=== PATIENT | female | born 1955 | race Caucasian/White ===

== ENCOUNTER 2016-11-08 09:01 | Observation (INO) | payer OTHER ==
[2016-11-08 09:28] LABS: BASOPHIL 1.3 % (0-2.0); MCH 29.8 pg (25.7-33.7); MCHC 33.7 g/dl (32.0-36.0); MEAN CELL VOLUME 88.4 fl (80-96); MEAN PLT VOLUME 9.1 fl (7.5-11.1); NEUTROPHILS 62.1 % (42.8-82.8); PLATELET COUNT 203 K/MM3 (134-434); RDW 14.4 % (11.6-15.6); WHITE BLOOD COUNT 9.6 K/mm3 (4.0-10.0)
[2016-11-08 09:36] VITALS: BMI 27.4
[2016-11-08] MEDS ORDERED: LORAZEPAM CARPU-JECT 2 MG/ML DISP.SYRIN ONE ×2 (09:44→11:59)
[2016-11-08] MEDS ORDERED: HALOPERIDOL LACTATE 5 MG/ML IM ONE ×2 (09:44→12:29)
[2016-11-08] MEDS ORDERED: LORAZEPAM CARPU-JECT 2 MG/ML DISP.SYRIN IM ONE (09:44)
--- NOTE | 2016-11-08 09:50 | PDOC ---
History of Present Illness <Alondra Machadoyn - Last Filed: 11/08/16 11:29> - General History Source: Patient, EMS Exam Limitations: Clinical Condition - History of Present Illness Initial Comments: 11/08/16 09:48 61y F hx of paranoid schizophrenia, copd, sent by [email or web address] for evaluation of AMS. Per EMS, the pateint was seen more confused and not at her baseline since this morning with a mild L sided facial droop. EMS states the last time she was seen normal was last night. Per EMS, her vitals were HR 76, BP 114/78, BGM 74, saturation of 98% on RA. The patient denies any complaints, she is somenolent, but easily arousable to vertbal stimulus. she states she is just sleepy because she just woke up. Pt denies any other complaints currently but is combative and refusing any care. <Manuel Fam - Last Filed: 11/09/16 08:10> - General Chief Complaint: Altered Mental Status Stated Complaint: Altered Mental Status Time Seen by Provider: 11/08/16 09:14 NIH Stroke Scale - Last Known Well Date/Time & Onset Date Last Known Well: 11/07/16 (NIHSS Not accurate due to the patient being noncooperative with test) Time Last Known Well: 20:00 - Initial Evaluation Level of consciousness: Alert Ask patient the month and their age: Answers both correctly Ask patient to open & close eyes; make fist and let go: Obeys both correctly Best gaze (horizontal eye movement): Normal Visual field testing: No visual field loss Facial paresis (Show teeth/raise eyebrows/close eyes tight): Minor paralysis ( flattened nasolabial fold, asymmetry on smiling) Motor Function: Left Arm: Normal Motor Function: Right Arm: Normal (extends arm 90 (or 45) degrees for 10 seconds without drift Motor Function: Left Leg: Untestable (Joint fused or limb amputated), explain: (refusing to cooperate) Motor Function: Right Leg: Untestable )Joint fused orlimb amputated), explain: (refusing to cooperate with testing) Limb Ataxia: Untestable (Joint fused or limb amputated), explain: (refusing to cooperate with testing) Sensory(Use pinprick test arms,legs,trunk,face/side to side): Normal (patient refusing to cooperate with testing) Best language (Describe picture, name items, read sentences): No Aphasia Dysarthria (read several words): Normal articulation Extinction and Inattention: No abnormality (patient refusing to cooperate with testing) - Total Score NIH Stroke Scale Score: 1 <Manuel Fam - Last Filed: 11/09/16 08:10> tPA Exclusion checklist 3-4.5h - Time Elapsed Date last known well: 11/07/16 Time last known well: 22:00 Elaspsed time: 1 Day(s) and 10 Hour(s) and 8 Minutes - Thrombolytic Therapy Candidate Is patient eligible for thrombolytic therapy: No - Ineligibility reason(s) Reasons No tPA given: Outside of window - delayed arrival <Manuel Fam - Last Filed: 11/09/16 08:10> Past History <Lori Machado - Last Filed: 11/08/16 11:29> - Past Medical History COPD: Yes Psychiatric Problems: Yes (schizophreneia) - Psycho/Social/Smoking Cessation Hx Suicidal Ideation: No Smoking History: Current every day smoker Have you smoked in the past 12 months: Yes Number of Cigarettes Smoked Daily: 10 Information on smoking cessation initiated: No Drug/Substance Use Hx: No <Manuel Fam - Last Filed: 11/09/16 08:10> - Past Medical History Allergies/Adverse Reactions: Allergies Allergy/AdvReac Type Severity Reaction Status Date / Time Tetracyclines Allergy Severe Swelling Verified 11/08/16 09:36 Penicillins Allergy Intermediate Swelling Verified 11/08/16 09:36 Home Medications: Ambulatory Orders Alendronate Na [Fosamax] 70 mg PO Q7D 11/08/16 Baclofen 20 mg PO TID 11/08/16 Benztropine Mesylate 2 mg PO BID 11/08/16 Clonazepam 2 mg PO TID 11/08/16 Docusate Sodium [Colace -] 300 mg PO HS 11/08/16 Donepezil HCl 5 mg PO DAILY 11/08/16 Donepezil HCl [Aricept -] 10 mg PO HS 11/08/16 Fluphenazine HCl [Prolixin -] 5 mg PO BID 11/08/16 Oxybutynin Chloride [Oxybutynin Chloride ER] 5 mg PO DAILY 11/08/16 Oxycodone Sr [Oxycontin] 5 mg PO QID 11/08/16 Paroxetine HCl 40 mg PO DAILY 11/08/16 Quetiapine Fumarate [Quetiapine Fumarate ER] 200 mg PO HS 11/08/16 Quetiapine Fumarate [Seroquel -] 50 mg PO DAILY 11/08/16 Review of Systems - Review of Systems Able to Perform ROS?: No <Manuel Fam - Last Filed: 11/09/16 08:10> *Physical Exam - Vital Signs Last Vital Signs Temp Pulse Resp BP Pulse Ox 97.3 F L 56 L 14 152/115 100 11/08/16 09:32 11/08/16 10:00 11/08/16 10:00 11/08/16 10:00 11/08/16 10:00 <CandiceLori rodriguez - Last Filed: 11/08/16 11:29> - Vital Signs Last Vital Signs Temp Pulse Resp BP Pulse Ox 97.3 F L 61 10 L 127/83 97 11/08/16 09:32 11/08/16 09:32 11/08/16 09:32 11/08/16 09:32 11/08/16 09:32 - Physical Exam Comments: 11/08/16 10:02 GENERAL: The patient is awake, alert, and oriented x 2, somnolent but arousable to verbal stimulus HEAD: Normocephalic, atraumatic. EYES: extraocular movements intact, sclera anicteric, conjunctiva clear. ENT: Normal voice, Moist mucous membranes. NECK: Normal range of motion, supple LUNGS: Breath sounds equal, clear to auscultation bilaterally. No wheezes, no rhonchi, no rales. HEART: Regular rate and rhythm, normal S1 and S2 without murmur, rub or gallop. ABDOMEN: Soft, nontender, normoactive bowel sounds. No guarding, no rebound. . No CVA tenderness EXTREMITIES: Normal range of motion, no edema. No clubbing or cyanosis. No cords, erythema, or tenderness. NEUROLOGICAL: Mild left facial droop (flattening of L nasolabial fold), Normal speech, moving all 4 extremities spontaneoulsy and symmetrically, strength in upper extremities symmetric 5/5, will not cooperate for us to test her LE strength, finger to nose PSYCH: Normal mood, normal affect. SKIN: Warm, Dry, normal turgor, <Manuel Fam - Last Filed: 11/09/16 08:10> Heart Score/ECG Review - ECG Impressions Comment:: 11/08/16 11:35 Twelve-lead EKG was performed and reviewed by me. There is normal sinus rhythm with a rate of 54 The axis is normal. The intervals are normal. There is normal R wave progression There are no ST or T wave abnormalities. Impression: Sinus bradycardia <Manuel Fam - Last Filed: 11/09/16 08:10> ED Treatment Course - LABORATORY CBC & Chemistry Diagram: 11/08/16 09:20 11/08/16 09:20 - ADDITIONAL ORDERS Additional order review: Laboratory Results 11/08/16 11/08/16 11/08/16 09:38 09:38 09:38 INR Sodium Potassium Chloride Carbon Dioxide Anion Gap BUN Creatinine Creat Clearance w eGFR Random Glucose Calcium Total Bilirubin AST ALT Alkaline Phosphatase Creatine Kinase CK-MB (CK-2) Troponin I Total Protein Albumin Urine Color Ltyellow Urine Appearance Clear Urine pH 6.0 Ur Specific [place] 1.005 Urine Protein Negative Urine Glucose (UA) Negative Urine Ketones Negative Urine Blood 2+ H Urine Nitrite Positive Urine Bilirubin Negative Urine Urobilinogen Negative Ur Leukocyte Esterase Trace H Urine RBC 1 Urine WBC 4 Ur Epithelial Cells Rare Urine Bacteria Rare Opiates Screen Negative Methadone Screen Negative Barbiturate Screen Negative Phencyclidine Screen Negative Ur Amphetamines Screen Negative MDMA (Ecstasy) Screen Negative Benzodiazepines Screen Negative Cocaine Screen Negative U Marijuana (THC) Screen Negative Blood Type O POSITIVE Antibody Screen Negative 11/08/16 11/08/16 09:20 09:20 INR 1.06 Sodium 146 H Potassium 4.0 Chloride 111 H Carbon Dioxide 29 Anion Gap 6 L BUN 12 Creatinine 0.8 Creat Clearance w eGFR > 60 Random Glucose 80 Calcium 8.9 Total Bilirubin 0.5 AST 16 ALT 19 Alkaline Phosphatase 108 Creatine Kinase 198 H CK-MB (CK-2) 4.029 H Troponin I < 0.02 Total Protein 6.7 Albumin 3.8 Urine Color Urine Appearance Urine pH Ur Specific [place] Urine Protein Urine Glucose (UA) Urine Ketones Urine Blood Urine Nitrite Urine Bilirubin Urine Urobilinogen Ur Leukocyte Esterase Urine RBC Urine WBC Ur Epithelial Cells Urine Bacteria Opiates Screen Methadone Screen Barbiturate Screen Phencyclidine Screen Ur Amphetamines Screen MDMA (Ecstasy) Screen Benzodiazepines Screen Cocaine Screen U Marijuana (THC) Screen Blood Type Antibody Screen 11/08/16 09:20 RBC 4.22 MCV 88.4 MCHC 33.7 RDW 14.4 MPV 9.1 Neutrophils % 62.1 Lymphocytes % 21.1 Monocytes % 11.5 H Eosinophils % 4.0 Basophils % 1.3 - RADIOLOGY Radiograph Interpretation: 11/08/16 11:29 Chest X-Ray Shallow inspiration. Uncoiled thoracic aorta. Heart is borderline enlarged. No evidence of pulmonary infiltrates, pneumothorax , or large pleural effusion. Intact visualized osseous structures. Accentuated pulmonary vasculature attributed to combination of the portable exam and shallow inspiration. Impression No evidence of pneumonia, CHF, pleural effusion, or pneumothorax. Reported By: Parag Lantigua MD 11/08/[address] Head Impression. No evidence of acute intracranial hemorrhage, edema, midline shift, mass effect , or skull fracture. No CT evidence of acute territorial infarction. Reported By: Parag Lantigua MD 11/08/16 1042 - Medications Given in the ED: ED Medications Discontinued Medications Generic Name Dose Route Start Last Admin Trade Name Freq PRN Reason Stop Dose Admin Haloperidol 5 mg 11/08/16 09:44 11/08/16 10:39 Haldol Injection (Fast Acting) - IM 11/08/16 09:45 Not Given ONCE ONE Lorazepam 2 mg 11/08/16 09:44 11/08/16 09:45 Ativan Injection - IM 11/08/16 09:45 2 mg ONCE ONE Administration <Lori Machado - Last Filed: 11/08/16 11:29> - LABORATORY CBC & Chemistry Diagram: 11/08/16 09:20 11/08/16 09:20 - ADDITIONAL ORDERS Additional order review: 11/08/16 09:20 RBC 4.22 MCV 88.4 MCHC 33.7 RDW 14.4 MPV 9.1 Neutrophils % 62.1 Lymphocytes % 21.1 Monocytes % 11.5 H Eosinophils % 4.0 Basophils % 1.3 <Manuel Fam - Last Filed: 11/09/16 08:10> Medical Decision Making - Medical Decision Making 11/08/16 09:53 pt refusing any care. due to her psych history, and her inability to reply back to me my concerns for her having a possible CVA due to her flattened nasolabial fold, i do not think she has the capacity to make a decision to refuse care. will need to sedate the patient due to her interfering with patient care. will give pt 2mg ativan will obtain blood work and UA 11/08/16 10:25 11/08/16 10:53 Patient is a 61-year-old female history of schizophrenia paranoid type, COPD sent in by a [facility] guardian for evaluation of possible cVA - patient noted different from her baseline per staff, EMS was called noted the patient had a mild left sedate sided facial droop as well as an uneven gait (may be baseline) . The patient is noncooperative upon arrival, requiring sedation and restraitns. CT was obtained to rule out a CVA, blood work was obtained to rule out metabolic derangements, anemia consider possible bells palsy? unable to determine if there is weakness or not in the V1 distribution UA chest x-ray also obtained to rule out occult infection The patient's CT of the head reveals no acute disease 11/08/16 11:11 pts UA cw UTI will give dose of levaquin will admit for neuro eval of facial droop and possible cva and uti NIHSS completed but not accurate due to the pts not willing to cooperatew ith testing. 11/08/16 11:[address] novoa agreed with observation and neuro consultation Case discussed in detail with admitting physician including history, physical exam and ancillary studies. Admitting physician has assumed care for the patient, will follow all pending diagnostics and will complete the evaluation and treatment. 11/08/16 12:31 pt again screaming, fighting against staff required 4 pt restraints and mary kay give haldol pts QT at 451 on EKG here CRITICAL CARE DOCUMENTATION: I spent ~95 minutes of Critical Care time, excluding separately billable procedures, involving high complexity decision making to assess, manipulate and support vital system function(s) to treat single or multiple vital organ system failure and/or to prevent further life threatening deterioration of the patient' s condition. <Manuel Fam - Last Filed: 11/09/16 08:10> *DC/Admit/Observation/Transfer <Lori Machado - Last Filed: 11/08/16 11:29> - Discharge Dispostion Admit: Yes <Manuel Fam - Last Filed: 11/09/16 08:10> Diagnosis at time of Disposition: Facial droop UTI (urinary tract infection) Qualifiers: Urinary tract infection type: site unspecified Hematuria presence: without hematuria Qualified Code(s): N39.0 - Urinary tract infection, site not specified - Discharge Dispostion Condition at time of disposition: Guarded - Referrals
[2016-11-08 09:58] LABS: ALBUMIN 3.8 g/dl (3.4-5.0); ALK PHOS 108 U/L (45-117); ANION GAP 6 (8-16); CALCIUM 8.9 mg/dL (8.5-10.1); CO2 29 mmol/L (21-32); CREATININE 0.8 mg/dL (0.55-1.02); GLUCOSE,RANDOM 80 mg/dL (74-106); SGOT/AST 16 U/L (15-37); SGPT/ALT 19 U/L (12-78); TOT PROT 6.7 g/dl (6.4-8.2)
[2016-11-08 10:02] LABS: INR 1.06 (0.82-1.09); PROTHROMBIN TIME (PATIENT) 11.7 SEC (9.98-11.88)
[2016-11-08 10:13] LABS: BILIRUBIN,TOTAL 0.5 mg/dL (0.2-1.0); TROPONIN I < 0.02 ng/ml (0.00-0.05)
[2016-11-08 10:55] LABS: URINE APPEARANCE CLEAR; URINE BILIRUBIN NEGATIVE (NEGATIVE); URINE COLOR LTYELLOW; URINE GLUCOSE (UA) NEGATIVE (NEGATIVE); URINE KETONE NEGATIVE (NEGATIVE); URINE NITRITE POSITIVE (NEGATIVE); URINE PROTEIN NEGATIVE (NEGATIVE); URINE UROBILINOGEN NEGATIVE E.U./dl (0.2-1.0)
[2016-11-08 10:58] LABS: URINE BLOOD 2+ (NEGATIVE); URINE LEUK ESTERASE TRACE (NEGATIVE)
[2016-11-08 10:59] LABS: URINE BACTERIA RARE /hpf (NONE SEEN); URINE RBC 1 /hpf (0-3); URINE WBC 4 /hpf (3-5)
[2016-11-08 11:01] LABS: URINE MARIJUANA THC NEGATIVE ng/ml (CUTOFF=50)
[2016-11-08] MEDS ORDERED: LEVOFLOXACIN 750 MG IVPB 150 ML IVPB ONE (11:09)
[2016-11-08] MEDS ORDERED: ASPIRIN 81 MG CHEWABLE TABLETS PO ONE (11:14)
[2016-11-08] MEDS ORDERED: ASPIRIN 81 MG CHEWABLE TABLETS ONE (11:23)
[2016-11-08] MEDS ORDERED: LEVOFLOXACIN 500 MG IVPB 100 ML IVPB ONE (11:24)
[2016-11-08] MEDS ORDERED: LEVOFLOXACIN 250 MG IVPB 50 ML IVPB ONE (11:24)
[2016-11-08] MEDS ORDERED: ACETAMINOPHEN 325 MG TABLET (FP) PO PRN (11:54)
[2016-11-08] MEDS ORDERED: ONDANSETRON 4 MG/2 ML VIAL IVPB PRN (11:54)
--- NOTE | 2016-11-08 11:54 | HP ---
[id number] from [email or web address] who was sent in to the ER because she was confused and appeared to have a left facial droop. As per EMS, she last appeared normal last night. On arrival to the ER, she was noted to be somnolent but arousable and combative. She is currently sedated and minimally arousable to pain. She is unable to provide any history. PAST MEDICAL HISTORY Paranoid schizophrenia COPD PAST SURGICAL HISTORY Unobtainable Allergies Tetracyclines Allergy (Severe, Verified 11/08/16 09:36) Swelling Penicillins Allergy (Intermediate, Verified 11/08/16 09:36) Swelling HOME MEDICATIONS 3 Medication Instructions Recorded Alendronate Na [Fosamax] 70 mg PO Q7D 11/08/16 Baclofen 20 mg PO TID 11/08/16 Benztropine Mesylate 2 mg PO BID 11/08/16 Clonazepam 2 mg PO TID 11/08/16 Docusate Sodium [Colace -] 300 mg PO HS 11/08/16 Donepezil HCl 5 mg PO DAILY 11/08/16 Donepezil HCl [Aricept -] 10 mg PO HS 11/08/16 Fluphenazine HCl [Prolixin -] 5 mg PO BID 11/08/16 Oxybutynin Chloride [Oxybutynin 5 mg PO DAILY 11/08/16 Chloride ER] Oxycodone Sr [Oxycontin] 5 mg PO QID 11/08/16 Paroxetine HCl 40 mg PO DAILY 11/08/16 Quetiapine Fumarate [Quetiapine 200 mg PO HS 11/08/16 Fumarate ER] Quetiapine Fumarate [Seroquel -] 50 mg PO DAILY 11/08/16 Social History: Smoking: Unknown Alcohol: Unknown Drugs: Unknown Recent Travel: No Family History: Unobtainable REVIEW OF SYSTEMS Unobtainable PHYSICAL EXAMINATION Vital Signs Period Temp Pulse Resp BP Sys/[place] Pulse Ox Last 24 Hr 97.3 F 56-61 10-14 127-152/83-115 97-100 GENERAL: Sleeping. Minimally arousable with pain. HEAD: Normal with no signs of trauma. EYES: Pupils equal, round and reactive to light, sclerae anicteric, conjunctivae clear. EARS, NOSE, THROAT: Ears normal, nares patent. Moist mucous membranes. NECK: Normal range of motion, supple without lymphadenopathy, JVD, or masses. LUNGS: Breath sounds equal, clear to auscultation bilaterally. No wheezes, and no crackles. No accessory muscle use. HEART: Regular rate and rhythm, normal S1 and S2 without murmur, rub or gallop. ABDOMEN: Soft, not distended, normoactive bowel sounds, no guarding, no rebound , no masses. No hepatomegaly or splenomegaly. MUSCULOSKELETAL: Normal passive range of motion at all joints. No bony deformities. UPPER EXTREMITIES: 2+ pulses, warm, well-perfused. No cyanosis. No clubbing. Cap refill <2 seconds. No peripheral edema. LOWER EXTREMITIES: 2+ pulses, warm, well-perfused. No calf tenderness. No peripheral edema. NEUROLOGICAL: Unable to assess. PSYCHIATRIC: Unable to assess. SKIN: Warm, dry, normal turgor, no rashes or lesions noted. Laboratory Tests 11/08/16 11/08/16 11/08/16 09:20 09:20 09:20 WBC 9.6 RBC 4.22 Hgb 12.6 Hct 37.3 MCV 88.4 MCHC 33.7 RDW 14.4 Plt Count 203 MPV 9.1 Neutrophils % 62.1 Lymphocytes % 21.1 Monocytes % 11.5 H Eosinophils % 4.0 Basophils % 1.3 INR 1.06 Sodium 146 H Potassium 4.0 Chloride 111 H Carbon Dioxide 29 Anion Gap 6 L BUN 12 Creatinine 0.8 Creat Clearance w eGFR > 60 Random Glucose 80 Calcium 8.9 Total Bilirubin 0.5 AST 16 ALT 19 Alkaline Phosphatase 108 Creatine Kinase 198 H CK-MB (CK-2) 4.029 H Troponin I < 0.02 Total Protein 6.7 Albumin 3.8 Urine Color Urine Appearance Urine pH Ur Specific [place] Urine Protein Urine Glucose (UA) Urine Ketones Urine Blood Urine Nitrite Urine Bilirubin Urine Urobilinogen Ur Leukocyte Esterase Urine RBC Urine WBC Ur Epithelial Cells Urine Bacteria Opiates Screen Methadone Screen Barbiturate Screen Phencyclidine Screen Ur Amphetamines Screen MDMA (Ecstasy) Screen Benzodiazepines Screen Cocaine Screen U Marijuana (THC) Screen Blood Type Antibody Screen 11/08/16 11/08/16 11/08/16 09:38 09:38 09:38 WBC RBC Hgb Hct MCV MCHC RDW Plt Count MPV Neutrophils % Lymphocytes % Monocytes % Eosinophils % Basophils % INR Sodium Potassium Chloride Carbon Dioxide Anion Gap BUN Creatinine Creat Clearance w eGFR Random Glucose Calcium Total Bilirubin AST ALT Alkaline Phosphatase Creatine Kinase CK-MB (CK-2) Troponin I Total Protein Albumin Urine Color Ltyellow Urine Appearance Clear Urine pH 6.0 Ur Specific [place] 1.005 Urine Protein Negative Urine Glucose (UA) Negative Urine Ketones Negative Urine Blood 2+ H Urine Nitrite Positive Urine Bilirubin Negative Urine Urobilinogen Negative Ur Leukocyte Esterase Trace H Urine RBC 1 Urine WBC 4 Ur Epithelial Cells Rare Urine Bacteria Rare Opiates Screen Negative Methadone Screen Negative Barbiturate Screen Negative Phencyclidine Screen Negative Ur Amphetamines Screen Negative MDMA (Ecstasy) Screen Negative Benzodiazepines Screen Negative Cocaine Screen Negative U Marijuana (THC) Screen Negative Blood Type O POSITIVE Antibody Screen Negative Chest x-ray: No acute process. Head CT: No hemorrhage, mass, infarct. EKG: Sinus bradycardia, rate 54. ASSESSMENT/PLAN: This is a 61-year-old woman with a history of paranoid schizophrenia and COPD who was sent in from [facility] with confusion and left facial droop. She was found to have sodium 146. Urinalysis shows 2+ blood, (+) nitrite, trace leukocyte esterase, 4 WBC, rare bacteria. She is being placed in observation for further evaluation of an emergent condition. 1. Encephalopathy with left facial droop possibly secondary to acute CVA - No evidence of acute infarct on head CT - Observe on telemetry - Neurology consult - Start aspirin, Lipitor - Carotid dopplers - Echocardiogram - Lipid profile - MRI of brain if cooperative - Hold opiates 2. Hypernatremia secondary to dehydration - IV fluid - Monitor electrolytes 3. Possible UTI - Continue Levaquin 4. COPD - Stable - DuoNeb as needed 5. Paranoid schizophrenia - Continue Seroquel, Prolixin, Cogentin, Paxil, Klonopin Problem List - Problem (1) Dehydration Code(s): E86.0 - DEHYDRATION (2) Hypernatremia Code(s): E87.0 - HYPEROSMOLALITY AND HYPERNATREMIA (3) COPD (chronic obstructive pulmonary disease) Code(s): J44.9 - CHRONIC OBSTRUCTIVE PULMONARY DISEASE, UNSPECIFIED (4) Paranoid schizophrenia Code(s): F20.0 - PARANOID SCHIZOPHRENIA Visit type - Emergency Visit Emergency Visit: Yes ED Registration Date: 11/08/16 Care time: The patient presented to the Emergency Department on the above date and was hospitalized for further evaluation of their emergent condition. - New Patient This patient is new to me today: Yes Date on this admission: 11/08/16 - Critical Care Critical Care patient: No
[2016-11-08] MEDS ORDERED: ASPIRIN 300 MG SUPP.RECT RC ONE (12:00)
[2016-11-08] MEDS ORDERED: LORAZEPAM CARPU-JECT 2 MG/ML DISP.SYRIN IVPUSH ONE (12:08)
[2016-11-08] MEDS ORDERED: HALOPERIDOL LACTATE 5 MG/ML ONE (12:37)
[2016-11-08] MEDS ORDERED: ASPIRIN 300 MG SUPP.RECT PR ONE (12:46)
--- NOTE | 2016-11-08 13:18 | CONSULT ---
Admitting History and Physical - Primary Care Physician PCP: James Mack - Admission History of Present Illness: Per EMR: "Initial Comments: 11/08/16 09:48 61y F hx of paranoid schizophrenia, copd, sent by [facility] for evaluation of AMS. Per EMS, the pateint was seen more confused and not at her baseline since this morning with a mild L sided facial droop. EMS states the last time she was seen normal was last night. Per EMS, her vitals were HR 76, BP 114/78, BGM 74, saturation of 98% on RA. The patient denies any complaints, she is somenolent, but easily arousable to vertbal stimulus. she states she is just sleepy because she just woke up. Pt denies any other complaints currently but is combative and refusing any care. " Poor cooperation with staff reported. History Source: Patient, Medical Record Limitations to Obtaining History: Clinical Condition - Smoking History Smoking history: Current every day smoker Have you smoked in the past 12 months: Yes Aproximately how many cigarettes per day: 10 History - Admission Reason For Visit: UTI,FACIAL WEAKNESS - Diagnostics X-ray: Report Reviewed CT Scan: Report Reviewed - General Mental Status: Awake and Alert, Able to Follow Commands, Forgetful, Combative ( per report. Cooperated with me.), Vague (Speaking to "Ismael") Attention: Distractible Ability to Follow Directions: Fair Head/Neck Control: Good - Hearing Hearing: Functional Speech Evaluation - Communication Primary Language: SURINAMESE Communication: Yes: Simple Responses - Speech Production Able to Make Needs Known: Yes: Mildly Impaired Intelligibility: Yes: Mildly Impaired - Speech Characteristics Voice Loudness: Normal Voice Pitch: Yes: Normal Voice Phonatory-based Quality: Yes: Normal Speech Clarity: < 75% Nasal Resonance: Normal Articulation: Yes: Imprecise Rate of Speech: Too Slow - Language/Auditory Comprehension Follows: Yes: 1 Stage Simple Commands - Language/Verbal Expression Able to Communicate Wants and Needs: Yes: Mildly Impaired - Swallow Evaluation/Bedside Assessment Current Nutritional Intake: NPO Oral Secretions: Yes: WFL Dentition: Yes: Edentulous (Pt says she has dentures but they are not at the hospital.) Facial Symmetry at Rest: Symmetrical (slight left?) Facial Symmetry on Retraction: Symmetrical Facial Movement: Controlled Sensation: Normal Jaw Position: Open at Rest Against Resistance Opening: Normal Against Resistance Closing: Normal Pucker Lips: Normal Smile: Normal Lingual Movement: Normal, Symmetric Lingual Speed of Movement: Reduced Lingual Movement Characteristics: Normal Velopharyngeal Movement: Normal Laryngeal Elevation: WFL Laryngeal Movement: Able to Palpate Rate of Intake: Impulsive Bolus Size: Large Labial Seal: WFL Chewing: Impaired (limited mastication of cracker. Seemed to stick in in throat , cleared with f/u of water.) Oral Prep Time: WFL A-P Transit: WFL Pocketing: Present Left Coughing/Throat Clear: No Change in Voice: No Recommendations - Speech Evaluation, Impression/Plan Impression: Mildly reduced articulatory rate.Edentulous with limited mastication /pharyngeal clearance suspected with hard solids. - Dysphagia Impressions/Plan Dysphagia Impressions: Mild Impairment *Silent aspiration: cannot be R/O at bedside Dysphagia Treatment Plan: Other (supervision with meals) - Recommendations Diet Consistency: Other (soft, easy to chew foods.) Medication Administration: Whole with water Liquids: Thin Liquids
[2016-11-08] MEDS ORDERED: ALBUTEROL SO4 2.5/IPRATROPIUM 0.5 INH SOL 3 ML VIAL.NEB. NEB PRN (13:27)
[2016-11-08] MEDS ORDERED: PATIENT'S OWN MEDICATION (NON-FORMULARY) (Baclofen [Baclofen] 20 MG) PO SCH (14:00)
[2016-11-08] MEDS ORDERED: CLONAZEPAM 2 MG PO SCH (14:00)
[2016-11-08] MEDS: clonazePAM 2 MG TABLET PO SCH ×2 (16:28→23:06)
[2016-11-08] MEDS: SODIUM CHLORIDE 1,000 ML IV SCH (16:29)
[2016-11-08] MEDS: BACLOFEN 10 MG TABLET (FP) PO SCH ×2 (16:29→22:58)
--- NOTE | 2016-11-08 19:45 | CON.NEURO ---
Consult Consult Specialty:: NEUROLOGY Reason for Consultation:: left facial droop, lethargy - History of Present Illness History of Present Illness: 61-year-old woman with a history of paranoid schizophrenia, COPD who was sent in from [facility] with confusion, agitation and left facial droop. In ED she was found to have sodium 146 and UTI. - Alcohol/Substance Use Hx Alcohol Use: No - Smoking History Smoking history: Current every day smoker Have you smoked in the past 12 months: Yes Aproximately how many cigarettes per day: 10 Home Medications - Allergies Allergies/Adverse Reactions: Allergies Allergy/AdvReac Type Severity Reaction Status Date / Time Tetracyclines Allergy Severe Swelling Verified 11/08/16 09:36 Penicillins Allergy Intermediate Swelling Verified 11/08/16 09:36 - Home Medications Home Medications: Ambulatory Orders Alendronate Na [Fosamax] 70 mg PO Q7D 11/08/16 Baclofen 20 mg PO TID 11/08/16 Benztropine Mesylate 2 mg PO BID 11/08/16 Clonazepam 2 mg PO TID 11/08/16 Docusate Sodium [Colace -] 300 mg PO HS 11/08/16 Donepezil HCl 5 mg PO DAILY 11/08/16 Donepezil HCl [Aricept -] 10 mg PO HS 11/08/16 Fluphenazine HCl [Prolixin -] 5 mg PO BID 11/08/16 Oxybutynin Chloride [Oxybutynin Chloride ER] 5 mg PO DAILY 11/08/16 Oxycodone Sr [Oxycontin] 5 mg PO QID 11/08/16 Paroxetine HCl 40 mg PO DAILY 11/08/16 Quetiapine Fumarate [Quetiapine Fumarate ER] 200 mg PO HS 11/08/16 Quetiapine Fumarate [Seroquel -] 50 mg PO DAILY 11/08/16 Review of Systems - Review of Systems Constitutional: reports: No Symptoms Eyes: reports: No Symptoms HENT: reports: No Symptoms Neck: reports: No Symptoms Cardiovascular: reports: No Symptoms Respiratory: reports: No Symptoms Neurological: reports: Pre-Existing Deficit, Tremors Endocrine: reports: No Symptoms Hematology/Lymphatic: reports: No Symptoms Psychiatric: reports: Depression, Paranoia Physical Exam-Neuro Vital Signs: Vital Signs Temperature 97.9 F 11/08/16 13:22 Pulse Rate 65 11/08/16 15:54 Respiratory Rate 14 11/08/16 13:42 Blood Pressure 126/78 11/08/16 13:22 O2 Sat by Pulse Oximetry (%) 100 11/08/16 13:42 Constitutional: Yes: Cachectic, Mild Distress, Poor Hygeine Neck: Yes: Supple, Trachea Midline Cardiovascular: Yes: Regular Rate and Rhythm, S1, S2 Respiratory: Yes: Regular, CTA Bilaterally Gastrointestinal: Yes: Normal Bowel Sounds, Soft Labs: INR, PTT INR 1.06 (0.82-1.09) 11/08/16 09:20 - Neuro Exam Level Of Consciousness: Yes: Oriented to Person, Oriented to Place, Oriented to Time Eyes: Yes: PERRLA Speech: Slurred Cranial Nerves II-XII Intact: No (mild LCFP, poor dentition) Gag: Present DTR's: 1+ Left Bicep, 1+ Right Bicep, 1+ Left Tricep, 1+ Right Tricep, 1+ Left Brachioradialis, 1+ Right Brachioradialis, 1+ Left Achilles, 1+ Right Achilles Babinski: Absent Response to light touch: Normal Response to pain prick: Normal Response to temperature: Normal Response to vibration: Normal Movement Disorders: Asterixis, Tremors Coordination: Normal: Finger to Nose (ataxia mild FTN) Motor Strength: 5/5: Left Arm, Right Arm, Left Leg, Right Leg Gait: Deferred Imaging - Results Cat Scan: Report Reviewed, Image Reviewed Problem List - Problems (1) Paranoid schizophrenia Code(s): F20.0 - PARANOID SCHIZOPHRENIA (2) Facial droop Code(s): R29.810 - FACIAL WEAKNESS (3) Hypernatremia Code(s): E87.0 - HYPEROSMOLALITY AND HYPERNATREMIA (4) Metabolic encephalopathy Code(s): G93.41 - METABOLIC ENCEPHALOPATHY Assessment/Plan 61-year-old woman with a history of paranoid schizophrenia, COPD who was sent in from [facility] with confusion, agitation and left facial droop. In ED she was found to have sodium 146 and UTI. At the neurological exam there is very mild left nasolabial fold asymmetry. Impression: lethargy and AMS due to metabolic encephalopathy, UTI, hypernatremia. TIA Plan: - stroke work up -Carotid dopplers, Echocardiogram, Lipid profile, MRI of brain - start ASA , statin, - treat UTI per medical team - correct electrolytes- banana bag. iv. x1 - Hold opiates, check depakote level - blood cultures - she burned her fingers recently and the left digit 3 seems infected - wound consult to consider Thank you for this consult.
[2016-11-08] MEDS ORDERED: PT OWN MED DRAWER 7, Y5N ONE (21:51)
[2016-11-08] MEDS: DOCUSATE SODIUM 100 MG CAPSULE (FP) PO SCH (22:54)
[2016-11-08] MEDS: BENZTROPINE MESYLATE 2 MG TABLET PO SCH (22:56)
[2016-11-08] MEDS: DONEPEZIL HCL 10 MG TABLET (FP) PO SCH (22:56)
[2016-11-08] MEDS: clonazePAM 0.5 MG TABLET PO SCH (22:57)
[2016-11-08] MEDS: ATORVASTATIN CA 40 MG TABLET (FP) PO SCH (22:58)
--- NOTE | 2016-11-08 23:15 | EKG ---
Test Reason : Blood Pressure : / mmHG Vent. Rate : 054 BPM Atrial Rate : 054 BPM P-R Int : 178 ms QRS Dur : 084 ms QT Int : 476 ms P-R-T Axes : 050 052 049 degrees QTc Int : 451 ms SINUS BRADYCARDIA OTHERWISE NORMAL ECG NO PREVIOUS ECGS AVAILABLE Confirmed by ROMEO LAM MD ([id number]) on 11/08/2016 11:15:10 PM Referred By: Confirmed By:ROMEO LAM MD
[2016-11-09] MEDS: LORAZEPAM CARPU-JECT 2 MG/ML DISP.SYRIN IM PRN ×2 (03:28→12:30)
[2016-11-09] MEDS: BACLOFEN 10 MG TABLET (FP) PO SCH ×3 (06:19→21:04)
[2016-11-09] MEDS: clonazePAM 0.5 MG TABLET PO SCH ×3 (06:19→21:03)
[2016-11-09 08:01] LABS: CALCIUM 8.3 mg/dL (8.5-10.1); CREATININE 0.8 mg/dL (0.55-1.02)
[2016-11-09] MEDS ORDERED: PT OWN MED DRAWER 7, Y5N ONE ×2 (09:08→20:58)
[2016-11-09] MEDS ORDERED: PATIENT'S OWN MEDICATION (NON-FORMULARY) (Oxybutynin Chloride [Oxybutynin Chloride Er] 5 M PO SCH (10:00)
[2016-11-09] MEDS ORDERED: PATIENT'S OWN MEDICATION (NON-FORMULARY) (Paroxetine Hcl [Paroxetine Hcl] 40 MG) PO SCH (10:00)
[2016-11-09] MEDS: SODIUM CHLORIDE 1,000 ML IV SCH (10:04)
[2016-11-09] MEDS: LEVOFLOXACIN 500 MG IVPB 100 ML IVPB SCH (10:04)
[2016-11-09] MEDS: DONEPEZIL HCL 5 MG TABLET (FP) PO SCH (10:06)
[2016-11-09] MEDS: ASPIRIN COATED 81 MG TABLET.EC PO SCH (10:08)
[2016-11-09] MEDS: BENZTROPINE MESYLATE 2 MG TABLET PO SCH ×2 (10:08→21:03)
[2016-11-09] MEDS: QUEtiapine FUMARATE 50 MG TABLET PO SCH (10:08)
[2016-11-09] MEDS: PARoxetine HCL 20 MG TABLET (FP) PO SCH (10:08)
[2016-11-09] MEDS: SOLIFENACIN SUCCINATE 5 MG TAB (FP) PO SCH (10:09)
[2016-11-09] MEDS ORDERED: POTASSIUM CHLORIDE 40 MEQ/30 ML UNIT DOSE CUP PO ONE (10:15)
--- NOTE | 2016-11-09 10:46 | PN ---
Progress Note, SENIOR BIOINFORMATICS SCIENTIST - Note Progress Note: Selected Entries 11/08/16 11/08/16 11/08/16 09:32 13:22 17:00 Supper Temperature 97.3 F L 97.9 F 98.0 F 11/08/16 11/08/16 11/09/16 21:20 22:00 10:00 Supper 50% Temperature 98.6 F 97.8 F Laboratory Tests 11/08/16 09:20 WBC 9.6 Pt seen with breakfast tray in front of her. Most remained. Pt reports that she is ALLERGIC TO EGGS AND HALDOL. Not noted in EMR or transfer summary. Reported to primary nurse and nurse mgr. Sleepy but arousable. Cooperative with me today. Speech more intelligible. Articulatory rate improving.
--- NOTE | 2016-11-09 17:23 | PN ---
Physical Exam: SUBJECTIVE: Patient seen and examined. She is want her phone. She is alert today , she says she is allergic to PCN. OBJECTIVE: Vital Signs Period Temp Pulse Resp BP Sys/Bahena Pulse Ox Last 24 Hr 97.8 F-98.7 F 76-79 18-22 130-157/90-105 100 PE Neuro: alert, awake, cn 2-12intact, oriented to self, place, year president, facial symmetry Pulm: Clear anteriorly CV: s1 s2 rrr no mrg Abd: s nt nd +bs Ext: L hand third digit burn, non draining, + tenderness, mild swelling, moving all extremities Laboratory Results - last 24 hr 11/09/16 05:35 Sodium 145 Potassium 3.4 L Chloride 109 H Carbon Dioxide 27 Anion Gap 9 BUN 11 Creatinine 0.8 Random Glucose 82 Calcium 8.3 L Triglycerides 90 Cholesterol 163 Total LDL Cholesterol 103 H HDL Cholesterol 52 Active Medications Generic Name Dose Route Start Last Admin Trade Name Freq PRN Reason Stop Dose Admin Acetaminophen 650 mg 11/08/16 11:54 Tylenol - PO Q4H PRN FEVER OR PAIN Albuterol/Ipratropium 1 amp 11/08/16 13:27 11/09/16 09:10 Duoneb - NEB 1 amp Q4H PRN Administration SHORTNESS OF BREATH Aspirin 81 mg 11/09/16 10:00 11/09/16 10:08 Ecotrin - PO 81 mg DAILY SHEA Administration Atorvastatin Calcium 40 mg 11/08/16 22:00 11/08/16 22:58 Lipitor - PO 40 mg HS SHEA Administration Baclofen 20 mg 11/08/16 14:00 11/09/16 14:26 Lioresal - PO 20 mg TID SHAE Administration Benztropine Mesylate 2 mg 11/08/16 22:00 11/09/16 10:08 Cogentin - PO 2 mg BID SHEA Administration Clonazepam 2 mg 11/08/16 22:00 11/09/16 14:26 Klonopin - PO 2 mg TID SHEA Administration Diphenhydramine HCl 25 mg 11/08/16 18:21 Benadryl Injection - IM Q6H PRN AGITATION Docusate Sodium 300 mg 11/08/16 22:00 11/08/16 22:54 Colace - PO 300 mg HS SHEA Administration Donepezil HCl 10 mg 11/08/16 22:00 11/08/16 22:56 Aricept - PO 10 mg HS SHEA Administration Donepezil HCl 5 mg 11/09/16 10:00 11/09/16 10:06 Aricept - PO 5 mg DAILY SHEA Administration Fluphenazine HCl 5 mg 11/08/16 22:00 11/09/16 10:18 Prolixin - PO 5 mg BID SHEA Administration Levofloxacin 100 mls @ 100 mls/hr 11/09/16 10:00 11/09/16 10:04 Levaquin 500 Mg Premixed Ivpb - IVPB 100 mls/hr DAILY SHEA Administration Sodium Chloride 1,000 mls @ 100 mls/hr 11/08/16 13:30 11/09/16 10:04 Normal Saline - IV 100 mls/hr ASDIR SHEA Administration Lorazepam 2 mg 11/08/16 18:21 11/09/16 12:30 Ativan Injection - IM 2 mg Q8H PRN Administration AGITATION Ondansetron HCl 4 mg 11/08/16 11:54 Zofran Injection IVPB Q4H PRN NAUSEA Paroxetine HCl 40 mg 11/09/16 10:00 11/09/16 10:08 Paxil - PO 40 mg DAILY SHEA Administration Quetiapine Fumarate 200 mg 11/08/16 22:00 11/08/16 22:55 Seroquel Xr - PO 200 mg HS SHEA Administration Quetiapine Fumarate 50 mg 11/09/16 10:00 11/09/16 10:08 Seroquel - PO 50 mg DAILY SHEA Administration Solifenacin 5 mg 11/09/16 10:00 11/09/16 10:09 Vesicare - PO 5 mg DAILY SHEA Administration Assessment: 61 year old female with a history of paranoid schizophrenia and COPD from [facility] admitted with confusion and left facial droop. Plan: 1. Encephalopathy with left facial droop possibly secondary to acute CVA vs UTI - MRI brain ordered - Head CT no acute infarct - CD mild atherosclerotic dz R>L, no hemodynamicly significant stenosis - ECHO shows normal LVSF, size, no wall motion abnormality, grade 1 diastolic dysfunction, mild TR, - Continue ASA, statin - Lipid profile noted 2. Hypernatremia secondary to dehydration - Improved - Continue fluids 3. UTI - Urine cx pre bran LFNB - Continue Levaquin - Awaiting speciation 4. COPD - Stable - DuoNeb as needed 5. Paranoid schizophrenia - Continue Seroquel, Prolixin, Cogentin, Chris, Klonopin Visit type - Emergency Visit Emergency Visit: Yes ED Registration Date: 11/08/16 Care time: The patient presented to the Emergency Department on the above date and was hospitalized for further evaluation of their emergent condition. - New Patient This patient is new to me today: Yes Date on this admission: 11/09/16 - Critical Care Critical Care patient: No
[2016-11-09] MEDS ORDERED: SODIUM CHLORIDE 1,000 ML IV SCH (17:26)
[2016-11-09] MEDS: DOCUSATE SODIUM 100 MG CAPSULE (FP) PO SCH (21:02)
[2016-11-09] MEDS: DONEPEZIL HCL 10 MG TABLET (FP) PO SCH (21:02)
[2016-11-09] MEDS: ATORVASTATIN CA 40 MG TABLET (FP) PO SCH (21:04)
[2016-11-10] MEDS: clonazePAM 0.5 MG TABLET PO SCH ×3 (06:09→21:50)
[2016-11-10] MEDS: BACLOFEN 10 MG TABLET (FP) PO SCH ×3 (06:09→21:51)
[2016-11-10 08:28] LABS: ALBUMIN 2.9 g/dl (3.4-5.0); ALK PHOS 94 U/L (45-117); ANION GAP 9 (8-16); BILIRUBIN,TOTAL 0.3 mg/dL (0.2-1.0); CO2 26 mmol/L (21-32); CREATININE 0.7 mg/dL (0.55-1.02); GLUCOSE,RANDOM 83 mg/dL (74-106); MAGNESIUM 2.1 mg/dL (1.8-2.4); SGOT/AST 12 U/L (15-37); SGPT/ALT 13 U/L (12-78); TOT PROT 5.5 g/dl (6.4-8.2)
[2016-11-10] MEDS: LEVOFLOXACIN 500 MG IVPB 100 ML IVPB SCH (09:49)
[2016-11-10] MEDS: DONEPEZIL HCL 5 MG TABLET (FP) PO SCH (09:50)
[2016-11-10] MEDS: ASPIRIN COATED 81 MG TABLET.EC PO SCH (09:50)
[2016-11-10] MEDS: PARoxetine HCL 20 MG TABLET (FP) PO SCH (09:50)
[2016-11-10] MEDS: QUEtiapine FUMARATE 50 MG TABLET PO SCH (09:50)
[2016-11-10] MEDS: BENZTROPINE MESYLATE 2 MG TABLET PO SCH ×2 (09:51→21:56)
[2016-11-10] MEDS: SOLIFENACIN SUCCINATE 5 MG TAB (FP) PO SCH (09:51)
--- NOTE | 2016-11-10 12:55 | PN ---
Progress Note, MACHINE TOOL OPERATOR - Note Progress Note: Cooperative and friendly with me today. More interactive. Tolerating diet Selected Entries 11/09/16 11/09/16 11/09/16 10:00 15:13 17:00 Supper Temperature 97.8 F 98.7 F 98.4 F 11/09/16 11/09/16 11/10/16 19:36 22:00 02:00 Supper 50% Temperature 97.5 F L 98 F 11/10/16 11/10/16 06:00 08:17 Supper Temperature 97.6 F 97.4 F L
--- NOTE | 2016-11-10 14:24 | DS ---
Physical Exam: SUBJECTIVE: Patient seen and examined. She is pleasant, she is happy to go home. Denies pain/sob/syncope OBJECTIVE: Vital Signs Period Temp Pulse Resp BP Sys/Bahena Pulse Ox Last 24 Hr 97.4 F-98.7 F 60-98 18-22 115-139/68-95 98-98 PE Neuro: alert, awake, cn 2-12intact, oriented to self, place, year president, facial symmetry Pulm: Clear anteriorly CV: s1 s2 rrr no mrg Abd: s nt nd +bs Ext: L hand third digit burn, non draining, + tenderness, mild swelling, moving all extremities Laboratory Results - last 24 hr 11/10/16 05:35 Sodium 143 Potassium 3.8 Chloride 108 H Carbon Dioxide 26 Anion Gap 9 BUN 19 H D Creatinine 0.7 Creat Clearance w eGFR > 60 Random Glucose 83 Calcium 8.0 L Magnesium 2.1 Total Bilirubin 0.3 D AST 12 L D ALT 13 D Alkaline Phosphatase 94 Total Protein 5.5 L Albumin 2.9 L D HOSPITAL COURSE: Date of Admission:11/08/16 Date of Discharge: 11/10/16 Minutes to complete discharge: 35 Discharge Summary Reason For Visit: UTI,FACIAL WEAKNESS Current Active Problems Dehydration (Acute) Facial droop (Acute) Hypernatremia (Acute) Metabolic encephalopathy (Acute) UTI (urinary tract infection) (Acute) COPD (chronic obstructive pulmonary disease) (Chronic) Paranoid schizophrenia (Chronic) Hospital Course: Initial Hospital Course: Briefly, this 61-year-old female from [facility] who was sent in to the ER because she was confused and appeared to have a left facial droop. As per EMS , she last appeared normal last night. On arrival to the ER, she was noted to be somnolent but arousable and combative. She is currently sedated and minimally arousable to pain. She is unable to provide any history. Subsequent Hospital Course/Progress Note/Discharge Summary by a/p: Assessment: 61 year old female with a history of paranoid schizophrenia and COPD from [facility] admitted with confusion and left facial droop. Plan: 1. Encephalopathy with left facial droop possibly secondary to acute CVA vs UTI - MRI brain negative or infarct - Head CT no acute infarct - CD mild atherosclerotic dz R>L, no hemodynamicly significant stenosis - ECHO shows normal LVSF, size, no wall motion abnormality, grade 1 diastolic dysfunction, mild TR, 2. Hypernatremia secondary to dehydration - Improved - Continue fluids 3. UTI d/t e coli - Continue Levaquin x7days 4. COPD - Stable - DuoNeb as needed 5. Paranoid schizophrenia - Continue Seroquel, Prolixin, Cogentin, Paxil, Klonopin 6. L finger burn - Silvadene daily Dispo: - Return to [facility], will continue abx course, silvadene for finger and pcp follow up in 1 week Condition: Stable - Instructions Diet, Activity, Other Instructions: Please return to the ED for any new, persistent, or worsening symptoms. Follow up with your pcp in 1 week Resume home medication as directed Complete antibiotics Levaquin as directed Apply silvadene to your left middle finger burn and continue with daily local wound care Referrals: Martinez Brown [Primary Care Provider] - Disposition: HOME - Home Medications Comprehensive Discharge Medication List: Ambulatory Orders Alendronate Na [Fosamax (Weekly)] 70 mg PO Q7D 11/08/16 Baclofen 20 mg PO TID 11/08/16 Benztropine Mesylate 2 mg PO BID 11/08/16 Clonazepam 2 mg PO TID 11/08/16 Docusate Sodium [Colace -] 300 mg PO HS 11/08/16 Donepezil HCl 5 mg PO DAILY 11/08/16 Donepezil HCl [Aricept -] 10 mg PO HS 11/08/16 Fluphenazine HCl [Prolixin -] 5 mg PO BID 11/08/16 Oxybutynin Chloride [Oxybutynin Chloride ER] 5 mg PO DAILY 11/08/16 Oxycodone Sr [Oxycontin] 5 mg PO QID 11/08/16 Paroxetine HCl 40 mg PO DAILY 11/08/16 Quetiapine Fumarate [Quetiapine Fumarate ER] 200 mg PO HS 11/08/16 Quetiapine Fumarate [Seroquel -] 50 mg PO DAILY 11/08/16 Levofloxacin [Levaquin -] 500 mg PO DAILY #4 tablet 11/10/16 Silver Sulfadiazine 1% Top Cr [Silvadene -] 1 applic TP DAILY #1 jar 11/10/16 This patient is new to me today: No Emergency Visit: Yes ED Registration Date: 11/08/16 Care time: The patient presented to the Emergency Department on the above date and was hospitalized for further evaluation of their emergent condition. Critical Care patient: No - Discharge Referral Referred to [facility] No
[2016-11-10] MEDS: DOCUSATE SODIUM 100 MG CAPSULE (FP) PO SCH (21:50)
[2016-11-10] MEDS: DONEPEZIL HCL 10 MG TABLET (FP) PO SCH (21:51)
[2016-11-10] MEDS: SILVER SULFADIAZINE 1% TOP CREAM 50 GM JAR TP SCH (21:51)
[2016-11-10] MEDS: ATORVASTATIN CA 40 MG TABLET (FP) PO SCH (21:51)
[2016-11-11] MEDS ORDERED: LEVOFLOXACIN 500 MG TABLET (FP) PO SCH (06:00)
[2016-11-11] MEDS: BACLOFEN 10 MG TABLET (FP) PO SCH (06:39)
[2016-11-11] MEDS: clonazePAM 0.5 MG TABLET PO SCH (06:39)
[2016-11-11] MEDS ORDERED: PT OWN MED DRAWER 7, Y5N ONE (08:54)
[2016-11-11] MEDS: SOLIFENACIN SUCCINATE 5 MG TAB (FP) PO SCH (09:00)
[2016-11-11] MEDS: DONEPEZIL HCL 5 MG TABLET (FP) PO SCH (09:00)
[2016-11-11] MEDS: QUEtiapine FUMARATE 50 MG TABLET PO SCH (09:01)
[2016-11-11] MEDS: ASPIRIN COATED 81 MG TABLET.EC PO SCH (09:01)
[2016-11-11] MEDS: BENZTROPINE MESYLATE 2 MG TABLET PO SCH (09:03)
[2016-11-11] MEDS: SILVER SULFADIAZINE 1% TOP CREAM 50 GM JAR TP SCH (09:05)
[2016-11-11] MEDS: PARoxetine HCL 20 MG TABLET (FP) PO SCH (09:20)
[2016-11-11 10:59] VITALS: BP 150/70; PULSE 78; TEMP 98
== END 2016-11-11 11:24 | disposition home or self-care (01) ==
LOC: JER 09:01 → JERBED 11:34 → J4W 13:10
PROVIDERS: ADMIT Internal Medicine; ATTEND Nurse Practitioner Acute Care
DX: N39.0 Urinary tract infection, site not specified (principal); E86.0 Dehydration; R29.810 Facial weakness; E87.0 Hyperosmolality and hypernatremia; J44.9 Chronic obstructive pulmonary disease, unspecified; F20.0 Paranoid schizophrenia; G93.41 Metabolic encephalopathy; B96.20 Unspecified Escherichia coli [E. coli] as the cause of diseases classified elsewhere; F17.210 Nicotine dependence, cigarettes, uncomplicated; R64 Cachexia; Z68.27 Body mass index [BMI] 27.0-27.9, adult
CPT/HCPCS: 36415; 70450-TC; 70551-TC; 71010-TC; 80048; 80053; 80061; 80307; 81003; 81015; 82550; 82553; 83721; 83735; 84484; 85025; 85610; 86850; 86900; 86901; 87086; 87186; 93005; 93010; 93306-TC; 93880-TC; 94640; 97116-GP; 97162-PG; 99285-25; G0378; J0475

== ENCOUNTER 2017-02-20 04:26 | Emergency (ER) | payer OTHER ==
[2017-02-20 04:44] VITALS: TEMP 98.3; BMI 25.0
[2017-02-20] MEDS ORDERED: LORazepam 1 MG TABLET PO ONE (04:50)
[2017-02-20] MEDS ORDERED: LORazepam 0.5 MG TABLET ONE ×2 (05:03→05:16)
--- NOTE | 2017-02-20 07:17 | PDOC ---
[id number] 100 02/20/17 04:35 02/20/17 04:35 02/20/17 04:35 02/20/17 04:35 02/20/17 04:35 ED Treatment Course - Medications Given in the ED: ED Medications Discontinued Medications Generic Name Dose Route Start Last Admin Trade Name Isabelle PRN Reason Stop Dose Admin Lorazepam 2 mg 02/20/17 04:50 02/20/17 05:06 Ativan - PO 02/20/17 04:51 2 mg ONCE ONE Administration Medical Decision Making - Medical Decision Making 02/20/17 07:16 Signout received from SHANAE Aguilera. Briefly, this is a 61 year old female with a history of schizophrenia (paranoid type) and COPD brought in from her group residence after she stated to the aide that she had a seizure. Staff report that she has been increasingly agitated and paranoid. UA and urine drug screen were unremarkable. Psych evaluation is pending. Patient evaluate by psychiatry and cleared for discharge to her facility. *DC/Admit/Observation/Transfer Diagnosis at time of Disposition: Agitation - Discharge Dispostion Disposition: PENITENTIARY FACILITY Admit: No - Referrals Referrals: Martinez Brown [Primary Care Provider] - - Patient Instructions Printed Discharge Instructions: DI for Schizophrenia Additional Instructions: Abbi's lab work was unremarkable. She did not have any seizure activity while here. She was evaluated by our psychiatrist and cleared for discharge. Please have her return for seizures or any other concerning symptoms. - Post Discharge Activity
[2017-02-20 07:43] LABS: URINE APPEARANCE CLEAR; URINE BILIRUBIN NEGATIVE (NEGATIVE); URINE COLOR COLORLESS; URINE GLUCOSE (UA) NEGATIVE (NEGATIVE); URINE KETONE NEGATIVE (NEGATIVE); URINE LEUK ESTERASE NEGATIVE (NEGATIVE); URINE NITRITE NEGATIVE (NEGATIVE); URINE PROTEIN NEGATIVE (NEGATIVE); URINE UROBILINOGEN NEGATIVE E.U./dl (0.2-1.0)
[2017-02-20 08:00] VITALS: BP 129/75; PULSE 88
[2017-02-20 08:17] LABS: URINE BLOOD 1+ (NEGATIVE)
[2017-02-20 08:18] LABS: URINE MARIJUANA THC NEGATIVE ng/ml (CUTOFF=50)
--- NOTE | 2017-02-20 10:46 | CON.PSY ---
Psychiatry Consult Chief Complaint: patient came in for cramps. Symptoms: reports: Grandiosity, Delusions - Previous Psychiatric Treatment Outpatient: Less than 6 mos ago Inpatient: 2 or more prior admissions - Previous Substance Abuse Treatment Outpatient: None Inpatient: None - Reason for Previous Treatment Reason for Previous Treatment: Psychotic Episode - Allergies Allergies: Allergies Allergy/AdvReac Type Severity Reaction Status Date / Time Tetracyclines Allergy Severe Swelling Verified 02/20/17 04:31 Penicillins Allergy Intermediate Swelling Verified 02/20/17 04:31 egg Allergy Verified 02/20/17 04:31 haloperidol [From Haldol] Allergy Verified 02/20/17 04:31 haloperidol lactate Allergy Verified 02/20/17 04:31 [From Haldol] - Current Living Status Usual Living Arrangement: Assisted Living - Current Mental Status Evaluation Appearance: Well Groomed Attitude: Guarded - Affect Affect: Constrictive Appropriateness: Appropriate to Content - Mood Mood: Euthymic - Speech/Language Expressive: Coherent - Psychomotor Activity Psychomotor Activity: Slowed - Thought Process Thought Process: Intact - Thought Content Hallucinations: Absent Delusions: Present - Cognition Attention: Alert Orientation: Time Memory, Immediate Recall: Intact Memory, Remote: Intact - Concentration Serial Sevens Intact: No Simple Calculations Intact: No - Abstraction Proverb Interpretation: Intact Judgement: Minimally Impaired - Insight Insight: Intact - Impulse Control Impulse Control: Minimally Impaired - Suicidal Ideation Suicidal Ideation: No - Homicidal Ideation Homicidal Ideation: No Assessment/Plan 1) Patient can return to [facility], Assisted Living facility.
== END 2017-02-20 12:30 ==
LOC: JER 04:26
DX: R45.1 Restlessness and agitation (principal); F20.0 Paranoid schizophrenia; K59.00 Constipation, unspecified; J44.9 Chronic obstructive pulmonary disease, unspecified
CPT/HCPCS: 80307; 81003; 81015; 99282-25

== ENCOUNTER 2017-09-19 11:04 | Emergency (ER) | payer OTHER ==
[2017-09-19] MEDS ORDERED: SODIUM CHLORIDE 1,000 ML IV STA (11:29)
[2017-09-19 11:31] VITALS: BMI 27.4
[2017-09-19 11:51] LABS: BASOPHIL 0.6 % (0-2.0); EOSINOPHIL 4.7 % (0-4.5); MCHC 32.5 g/dl (32.0-36.0); MEAN PLT VOLUME 9.2 fl (7.5-11.1); NEUTROPHILS 74.9 % (42.8-82.8); PLATELET COUNT 248 K/MM3 (134-434); RDW 14.4 % (11.6-15.6); WHITE BLOOD COUNT 9.5 K/mm3 (4.0-10.0)
--- NOTE | 2017-09-19 11:58 | PDOC ---
History of Present Illness - General Stated Complaint: WEAKNESS Time Seen by Provider: 09/19/17 11:12 History Source: Patient, Long Term Records Exam Limitations: No Limitations - History of Present Illness Initial Comments: 09/19/17 11:37 62-year-old female sent from [facility] for evaluation of lethargy. Patient states is not lethargic and is just tired. Patient states had her breakfast , her meds, and had no difficulty sleeping last night. Patient denies abdominal pain, chest pain, fever, chills diarrhea, dysuria, or dizziness. Patient does have history of COPD, and paranoid schizophrenia. Patient arrives with 3 of the name bands from [facility] over the past 2 months last visit being on 1210 at [facility]. Timing/Duration: unsure Severity: mild Associated Symptoms: reports: weakness Past History - Travel Traveled outside of the country in the last 30 days: No - Past Medical History Allergies/Adverse Reactions: Allergies Allergy/AdvReac Type Severity Reaction Status Date / Time Tetracyclines Allergy Severe Swelling Verified 09/19/17 11:31 Penicillins Allergy Intermediate Swelling Verified 09/19/17 11:31 egg Allergy Verified 09/19/17 11:31 haloperidol [From Haldol] Allergy Verified 09/19/17 11:31 haloperidol lactate Allergy Verified 09/19/17 11:31 [From Haldol] Home Medications: Ambulatory Orders Alendronate Na [Fosamax] 70 mg PO Q7D 09/19/17 Baclofen 5 mg PO TID 09/19/17 Benztropine Mesylate [Cogentin -] 1 mg PO HS 09/19/17 Clonazepam [Klonopin] 2 mg PO TID 09/19/17 Docusate Sodium [Colace -] 300 mg PO HS 09/19/17 Donepezil HCl [Aricept -] 5 mg PO DAILY 09/19/17 Donepezil HCl [Aricept -] 10 mg PO HS 09/19/17 Fluphenazine Decanoate 25 mg IJ WEEKLY 09/19/17 Marydel Carbonate [Eskalith -] 300 mg PO BID 09/19/17 Naproxen [Naprosyn -] 500 mg PO TID 09/19/17 Olanzapine [Zyprexa] 20 mg PO HS 09/19/17 Quetiapine Fumarate "Xr" [Seroquel Xr -] 400 mg PO HS 09/19/17 Quetiapine Fumarate [Quetiapine Fumarate ER] 200 mg PO DAILY 09/19/17 Trihexyphenidyl HCl [Artane] 2 mg PO TID 09/19/17 COPD: Yes DVT: No Psychiatric Problems: Yes (paranoid schizophrenic) - Suicide/Smoking/Psychosocial Hx Smoking History: Unknown if ever smoked Have you smoked in the past 12 months: Yes Number of Cigarettes Smoked Daily: 10 Information on smoking cessation initiated: No 'Breaking Loose' booklet given: 11/08/16 Hx Alcohol Use: No Drug/Substance Use Hx: No Substance Use Type: None Hx Substance Use Treatment: No Patient Lives Alone: No Lives with/in: assisted living Review of Systems - Review of Systems Able to Perform ROS?: Yes Constitutional: Yes: Weakness. No: Chills, Fever HEENTM: No: Symptoms Reported Respiratory: No: Symptoms reported Cardiac (ROS): No: Symptoms Reported ABD/GI: No: Symptoms Reported : No: Symptoms Reported Musculoskeletal: No: Symptoms Reported Integumentary: No: Symptoms Reported Neurological: Yes: Weakness Endocrine: No: Symptoms Reported *Physical Exam - Vital Signs Last Vital Signs Temp Pulse Resp BP Pulse Ox 98.5 F 63 18 98/63 100 09/19/17 11:27 09/19/17 11:27 09/19/17 11:27 09/19/17 11:27 09/19/17 11:27 - Physical Exam General Appearance: Yes: Nourished, Appropriately Dressed. No: Apparent Distress HEENT: positive: EOMI, LILLIANA, TMs Normal. negative: Pharynx Normal (dry) Neck: positive: Supple Respiratory/Chest: positive: Lungs Clear, Normal Breath Sounds. negative: Respiratory Distress, Accessory Muscle Use Cardiovascular: positive: Regular Rhythm, Regular Rate. negative: Murmur Gastrointestinal/Abdominal: positive: Soft. negative: Tenderness Extremity: positive: Normal Capillary Refill, Normal Range of Motion. negative : Pedal Edema Integumentary: positive: Normal Color, Dry, Warm Neurologic: positive: Motor Strength 5/5. negative: Normal Mood/Affect ( irritable and periodically uncooperative) Deep Tendon Reflexes: Knee (L): 2+, Knee (R): 2+ Heart Score/ECG Review - ECG Intrepretation Rhythm: Regular Rhythm (rate 65. 1 st degree av block. unchanged from previous) ED Treatment Course - LABORATORY CBC & Chemistry Diagram: 09/19/17 11:45 09/19/17 11:45 - ADDITIONAL ORDERS Additional order review: Laboratory Results 09/19/17 11:16 POC Glucometer [id number] 09/19/17 09/19/17 11:45 11:16 RBC 4.32 MCV 89.0 MCHC 32.5 RDW 14.4 MPV 9.2 Neutrophils % 74.9 D Lymphocytes % 10.4 D Monocytes % 9.4 Eosinophils % 4.7 H Basophils % 0.6 POC Glucometer 103.45046 - RADIOLOGY Radiology Studies Ordered: Category Date Time Status HEAD CT WITHOUT CONTRAST [CT] Stat CT Scan 09/19/17 11:28 Ordered CHEST X-RAY PORTABLE* [RAD] Stat Radiology 09/19/17 11:28 Ordered Medical Decision Making - Medical Decision Making 09/19/17 12:00 Patient sent over for evaluation of lethargy. Patient exam had no acute findings. BGM was 116 rectal temperature 98.5. Vital signs stable. Patient was ordered for labs including urine, EKG, chest x-ray and head CT. Patient also ordered for IV fluid secondary to BP of 90s over 50s. Patient requesting to eat and wants to go home. 09/19/17 13:27 Laboratory Tests 09/19/17 09/19/17 09/19/17 11:45 11:45 11:45 WBC 9.5 Hgb 12.5 Hct 38.5 Plt Count 248 D Neutrophils % 74.9 D Sodium 139 Potassium 4.2 Chloride 110 H Carbon Dioxide 24 Anion Gap 5 L BUN 27 H D Creatinine 1.1 H D Magnesium 2.5 H AST 6 L D Alkaline Phosphatase 170 H D Troponin I < 0.02 Urine Nitrite Urine Urobilinogen Opiates Screen Methadone Screen Barbiturate Screen Phencyclidine Screen Ur Amphetamines Screen MDMA (Ecstasy) Screen Benzodiazepines Screen Cocaine Screen U Marijuana (THC) Screen 09/19/17 09/19/17 12:01 12:01 WBC Hgb Hct Plt Count Neutrophils % Sodium Potassium Chloride Carbon Dioxide Anion Gap BUN Creatinine Magnesium AST Alkaline Phosphatase Troponin I Urine Nitrite Negative Urine Urobilinogen Negative Opiates Screen Negative Methadone Screen Negative Barbiturate Screen Negative Phencyclidine Screen Negative Ur Amphetamines Screen Negative MDMA (Ecstasy) Screen Negative Benzodiazepines Screen Negative Cocaine Screen Negative U Marijuana (THC) Screen Negative 09/19/17 13:[address] negative for acute findings. Patient requesting another meal after being fed a lunch. Patient is yelling and screaming for the food. Patient otherwise has no physical complaints and vital signs stable. Patient be sent back to [facility] *DC/Admit/Observation/Transfer Diagnosis at time of Disposition: Lethargy - Discharge Dispostion Disposition: HOME Condition at time of disposition: Good - Referrals - Patient Instructions Printed Discharge Instructions: DI for Schizophrenia Additional Instructions: Patient's labs and urine head CT EKG and chest x-ray were negative. Please offer patient small frequent meals and medication as previously prescribed. - Post Discharge Activity
[2017-09-19 12:20] LABS: ALBUMIN 3.9 g/dl (3.4-5.0); ANION GAP 5 (8-16); BILIRUBIN,TOTAL 0.5 mg/dL (0.2-1.0); CALCIUM 8.8 mg/dL (8.5-10.1); CO2 24 mmol/L (21-32); CREATININE 1.1 mg/dL (0.55-1.02); GLUCOSE,RANDOM 90 mg/dL (74-106); MAGNESIUM 2.5 mg/dL (1.8-2.4); SGOT/AST 6 U/L (15-37); SGPT/ALT 17 U/L (12-78); TOT PROT 7.2 g/dl (6.4-8.2)
[2017-09-19 12:21] LABS: ALK PHOS 170 U/L (45-117)
[2017-09-19 12:23] LABS: CPK 48 IU/L (26-192); TROPONIN I < 0.02 ng/ml (0.00-0.05)
[2017-09-19 12:26] LABS: URINE MARIJUANA THC NEGATIVE ng/ml (CUTOFF=50)
[2017-09-19 12:35] LABS: URINE APPEARANCE CLEAR; URINE BILIRUBIN NEGATIVE (NEGATIVE); URINE BLOOD NEGATIVE (NEGATIVE); URINE COLOR LTYELLOW; URINE GLUCOSE (UA) NEGATIVE (NEGATIVE); URINE KETONE NEGATIVE (NEGATIVE); URINE LEUK ESTERASE NEGATIVE (NEGATIVE); URINE NITRITE NEGATIVE (NEGATIVE); URINE PROTEIN NEGATIVE (NEGATIVE); URINE UROBILINOGEN NEGATIVE mg/dL (0.2-1.0)
--- NOTE | 2017-09-19 13:54 | PDOC ---
*Physical Exam - Vital Signs Last Vital Signs Temp Pulse Resp BP Pulse Ox 98.5 F 63 18 98/63 100 09/19/17 12:15 09/19/17 11:27 09/19/17 11:27 09/19/17 11:27 09/19/17 11:27 ED Treatment Course - LABORATORY CBC & Chemistry Diagram: 09/19/17 11:45 09/19/17 11:45 - ADDITIONAL ORDERS Additional order review: Laboratory Results 09/19/17 09/19/17 09/19/17 12:01 12:01 11:45 Sodium 139 Potassium 4.2 Chloride 110 H Carbon Dioxide 24 Anion Gap 5 L BUN 27 H D Creatinine 1.1 H D Creat Clearance w eGFR 50.67 POC Glucometer Random Glucose 90 Calcium 8.8 Magnesium 2.5 H Total Bilirubin 0.5 D AST 6 L D ALT 17 D Alkaline Phosphatase 170 H D Creatine Kinase Troponin I Total Protein 7.2 D Albumin 3.9 D Urine Color Ltyellow Urine Appearance Clear Urine pH 6.0 Ur Specific [place] 1.015 Urine Protein Negative Urine Glucose (UA) Negative Urine Ketones Negative Urine Blood Negative Urine Nitrite Negative Urine Bilirubin Negative Urine Urobilinogen Negative Opiates Screen Negative Methadone Screen Negative Barbiturate Screen Negative Phencyclidine Screen Negative Ur Amphetamines Screen Negative MDMA (Ecstasy) Screen Negative Benzodiazepines Screen Negative Cocaine Screen Negative U Marijuana (THC) Screen Negative 09/19/17 09/19/17 11:45 11:16 Sodium Potassium Chloride Carbon Dioxide Anion Gap BUN Creatinine Creat Clearance w eGFR POC Glucometer 103.41931 Random Glucose Calcium Magnesium Total Bilirubin AST ALT Alkaline Phosphatase Creatine Kinase 48 Troponin I < 0.02 Total Protein Albumin Urine Color Urine Appearance Urine pH Ur Specific [place] Urine Protein Urine Glucose (UA) Urine Ketones Urine Blood Urine Nitrite Urine Bilirubin Urine Urobilinogen Opiates Screen Methadone Screen Barbiturate Screen Phencyclidine Screen Ur Amphetamines Screen MDMA (Ecstasy) Screen Benzodiazepines Screen Cocaine Screen U Marijuana (THC) Screen 09/19/17 09/19/17 11:45 11:16 RBC 4.32 MCV 89.0 MCHC 32.5 RDW 14.4 MPV 9.2 Neutrophils % 74.9 D Lymphocytes % 10.4 D Monocytes % 9.4 Eosinophils % 4.7 H Basophils % 0.6 POC Glucometer 103.81444 - Medications Given in the ED: ED Medications Discontinued Medications Generic Name Dose Route Start Last Admin Trade Name Isabelle PRN Reason Stop Dose Admin Sodium Chloride 1,000 mls @ 1,000 mls/hr 09/19/17 11:29 09/19/17 11:47 Normal Saline - IV 09/19/17 12:28 1,000 mls/hr ASDIR STA Administration Medical Decision Making - Medical Decision Making 09/19/17 13:53 Patient seen and evaluated with the nurse practitioner. I agree with the overall evaluation, assessment, and management with the following summary of visit: 62-year-old female from [facility] for questionable altered mental status/ somnolence. Here, patient is very alert and cooperative. No fever, vitals are within normal limits Labs are also within normal limits, notable only for creatinine of 1.1 from baseline of 0.9. Urinalysis without evidence of infection CT head without acute pathology Patient has been stable throughout the ED visit, can return to [place]. Report given. *DC/Admit/Observation/Transfer Diagnosis at time of Disposition: Lethargy - Discharge Dispostion Disposition: HOME Condition at time of disposition: Good - Referrals - Patient Instructions Printed Discharge Instructions: DI for Schizophrenia Additional Instructions: Patient's labs and urine head CT EKG and chest x-ray were negative. Please offer patient small frequent meals and medication as previously prescribed. - Post Discharge Activity
[2017-09-19 15:14] VITALS: BP 100/68; PULSE 62; TEMP 98.7
[2017-09-19 18:35] LABS: URINE LEUK ESTERASE NEGATIVE (NEGATIVE)
--- NOTE | 2017-09-20 13:53 | EKG ---
Test Reason : Blood Pressure : / mmHG Vent. Rate : 065 BPM Atrial Rate : 065 BPM P-R Int : 220 ms QRS Dur : 084 ms QT Int : 462 ms P-R-T Axes : 056 053 049 degrees QTc Int : 480 ms SINUS RHYTHM WITH 1ST DEGREE A-V BLOCK LEFT ATRIAL ENLARGEMENT PROLONGED QT ABNORMAL ECG WHEN COMPARED WITH ECG OF 08-NOV-2016 10:54, ID INTERVAL HAS INCREASED NONSPECIFIC T WAVE ABNORMALITY NOW EVIDENT IN ANTERIOR LEADS Confirmed by MALU FORD MD ([id number]) on 09/20/2017 1:53:15 PM Referred By: Confirmed By:MALU FORD MD
== END 2017-09-19 15:30 | disposition home or self-care (01) ==
LOC: JER 11:04
PROC: 3E0337Z Introduction of Electrolytic and Water Balance Substance into Peripheral Vein, Percutaneous Approach (ICD-10-PCS; principal; 2017-09-19)
DX: R53.83 Other fatigue (principal); J44.9 Chronic obstructive pulmonary disease, unspecified; F20.9 Schizophrenia, unspecified; F17.210 Nicotine dependence, cigarettes, uncomplicated
CPT/HCPCS: 36415; 70450-TC; 71010-TC; 80053; 80307; 81003; 82550; 83735; 84484; 85025; 93005; 93010; 99283-25

== ENCOUNTER 2020-09-08 03:23 | Emergency (ER) | payer OTHER ==
[2020-09-08 04:13] VITALS: TEMP 97.9; BMI 24.2
[2020-09-08] MEDS ORDERED: SODIUM CHLORIDE 0.9% 500 ML INFUS.BAG IV ONE (04:34)
[2020-09-08] MEDS ORDERED: ONDANSETRON 4 MG/2 ML VIAL IVPUSH ONE (04:34)
[2020-09-08] MEDS ORDERED: ONDANSETRON 4 MG/2 ML VIAL ONE (04:47)
[2020-09-08 05:58] LABS: BASO % 0.2 % (0-2.0); EOS % 0.2 % (0-4.5); HEMOGLOBIN 11.7 GM/dL (10.7-15.3); LYMPH % 3.9 % (8-40); MCH 29.9 pg (25.7-33.7); MCHC 33.4 g/dl (32.0-36.0); MEAN CELL VOLUME 89.7 fl (80-96); MEAN PLT VOLUME 8.7 fl (7.5-11.1); MONO % 6.8 % (3.8-10.2); NEUT % 88.9 % (42.8-82.8); PLATELET COUNT 244 K/MM3 (134-434); RDW 12.3 % (11.6-15.6); WHITE BLOOD COUNT 16.9 K/mm3 (4.0-10.0)
[2020-09-08] MEDS ORDERED: ACETAMINOPHEN 1000 MG/100 ML VIAL (NON FORMULARY) IVPB ONE (06:11)
[2020-09-08] MEDS ORDERED: LIDOCAINE 2.5%/PRILOCAINE 2.5% 30 GRAM TUBE TP ONE (06:15)
[2020-09-08] MEDS ORDERED: LIDOCAINE 1%/EPI 1:100000 (20 ML MULTI DOSE VIAL) ONE (06:16)
[2020-09-08 06:17] LABS: CHLORIDE 90 mmol/L (98-107); SODIUM 124 mmol/L (136-145)
[2020-09-08 06:19] LABS: ALBUMIN 3.6 g/dl (3.4-5.0); ANION GAP 8 MMOL/L (8-16); BLOOD UREA NITROGEN 6.2 mg/dL (7-18); CALCIUM 7.7 mg/dL (8.5-10.1); CO2 26 mmol/L (21-32); GLUCOSE,RANDOM 130 mg/dL (74-106); INR 1.09 (0.83-1.09); MAGNESIUM 1.9 mg/dL (1.8-2.4); PROTHROMBIN TIME (PATIENT) 13.2 SEC (9.7-13.0)
[2020-09-08 06:21] LABS: ACTIVATED PTT 34.4 SECONDS (25.2-36.5)
[2020-09-08 06:22] LABS: CREATININE 0.5 mg/dL (0.55-1.3); SGOT/AST 22 U/L (15-37); SGPT/ALT 20 U/L (13-61)
[2020-09-08 06:24] LABS: BILIRUBIN,TOTAL 0.5 mg/dL (0.2-1); TOT PROT 6.2 g/dl (6.4-8.2)
[2020-09-08 06:25] LABS: ALK PHOS 110 U/L (45-117)
[2020-09-08] MEDS ORDERED: ACETAMINOPHEN INJECTION 100 ML IVPB ONE (06:25)
[2020-09-08] MEDS ORDERED: TETANUS AND DIPHTHERIA TOXOID 0.5 ML DISP.SYRIN IM ONE (07:21)
[2020-09-08] MEDS ORDERED: DIPHTH,PERTUSS(ACELL),TET 0.5 ML DISP.SYRIN IM ONE ×2 (07:38→07:39)
[2020-09-08 07:39] VITALS: BP 127/77; PULSE 76
== END 2020-09-08 07:45 | disposition short-term general hospital (02) ==
LOC: JER 03:23
PROC: 0JQ10ZZ Repair Face Subcutaneous Tissue and Fascia, Open Approach (ICD-10-PCS; principal; 2020-09-08)
PROC: 3E033NZ Introduction of Analgesics, Hypnotics, Sedatives into Peripheral Vein, Percutaneous Approach (ICD-10-PCS; 2020-09-08)
PROC: 3E033GC Introduction of Other Therapeutic Substance into Peripheral Vein, Percutaneous Approach (ICD-10-PCS; 2020-09-08)
PROC: 3E0234Z Introduction of Serum, Toxoid and Vaccine into Muscle, Percutaneous Approach (ICD-10-PCS; 2020-09-08)
DX: S22.49XA Multiple fractures of ribs, unspecified side, initial encounter for closed fracture (principal); S02.80XA Fracture of other specified skull and facial bones, unspecified side, initial encounter for closed fracture; S01.01XA Laceration without foreign body of scalp, initial encounter
CPT/HCPCS: 36415; 70450-TC; 70486-TC; 71260-TC; 72125-TC; 73560-TC-LT-FY; 73560-TC-RT-FY; 74177-TC; 80053; 80307; 82550; 82553; 83735; 84484; 85025; 85610; 85730; 90715; 93005; 93010; 99291; J0131

== ENCOUNTER 2023-12-05 14:31 | Inpatient (IN) | payer OTHER ==
[2023-12-05 15:05] VITALS: BMI 35.7
[2023-12-05 19:16] LABS: VENOUS BASE EXCESS 8.6 mmol/L (-2-2); VENOUS O2 SATURATION 56.5 % (70-80); VENOUS PH 7.306 (7.310-7.410)
[2023-12-05 19:19] LABS: BASO % 0.5 % (0-2.0); EOS % 4.8 % (0-4.5); HEMATOCRIT 37.9 % (32.4-45.2); HEMOGLOBIN 12.3 GM/dL (10.7-15.3); LYMPH % 17.7 % (8-40); MCHC 32.5 g/dl (32.0-36.0); MEAN PLT VOLUME 8.5 fl (7.5-11.1); MONO % 10.8 % (3.8-10.2); NEUT % 66.2 % (42.8-82.8); PLATELET COUNT 224 10^3/uL (134-434); RBC 4.41 M/mm3 (3.60-5.2); RDW 15.8 % (11.6-15.6); VENOUS PCO2 77.9 mmHg (38-52); WHITE BLOOD COUNT 8.4 K/mm3 (4.0-10.0)
[2023-12-05 19:29] LABS: INR 0.94 (0.83-1.09); PROTHROMBIN TIME (PATIENT) 10.9 SEC (9.7-13.0)
[2023-12-05 19:32] LABS: ACTIVATED PTT 37.4 SECONDS (25.2-36.5)
[2023-12-05 19:39] LABS: POTASSIUM 4.8 mmol/L (3.5-5.1)
[2023-12-05 19:40] LABS: CALCIUM 8.4 mg/dL (8.5-10.1)
[2023-12-05 19:41] LABS: ALBUMIN 3.3 g/dl (3.4-5.0); BLOOD UREA NITROGEN 8.7 mg/dL (7-18); MAGNESIUM 2.4 mg/dL (1.8-2.4)
[2023-12-05 19:44] LABS: CREATININE 0.6 mg/dL (0.55-1.3); PHOSPHOROUS 4.5 mg/dL (2.5-4.9)
[2023-12-05 19:46] LABS: BILIRUBIN,TOTAL 0.4 mg/dL (0.2-1); TOT PROT 6.8 g/dl (6.4-8.2)
[2023-12-05 19:49] LABS: N-TERMINAL BNP 214.3 pg/ml (5-125)
[2023-12-05 20:14] LABS: URINE APPEARANCE CLEAR; URINE BILIRUBIN NEGATIVE (NEGATIVE); URINE COLOR YELLOW; URINE GLUCOSE (UA) NEGATIVE (NEGATIVE); URINE KETONE NEGATIVE (NEGATIVE); URINE LEUK ESTERASE NEGATIVE (NEGATIVE); URINE NITRITE NEGATIVE (NEGATIVE); URINE PROTEIN NEGATIVE (NEGATIVE)
[2023-12-05] MEDS: ACETAMINOPHEN 500 MG TABLET (FP) PO ONE (20:18)
[2023-12-05] MEDS ORDERED: methylPREDNISolone NA SUCC 125 MG/2 ML VIAL ONE (20:19)
[2023-12-05] MEDS ORDERED: ALBUTEROL SO4 2.5/IPRATROPIUM 0.5 INH SOL 3 ML VIAL.NEB. NEB ONE (20:19)
[2023-12-05] MEDS ORDERED: ACETAMINOPHEN INJECTION 100 ML IVPB ONE (20:19)
[2023-12-05] MEDS: ALBUTEROL SO4 2.5/IPRATROPIUM 0.5 INH SOL 3 ML VIAL.NEB. NEB SCH (20:26)
[2023-12-05] MEDS: methylPREDNISolone NA SUCC 125 MG/2 ML VIAL IVPB ONE (20:26)
[2023-12-05] MEDS: ACETAMINOPHEN 1000 MG/100 ML BAG IVPB ONE (20:26)
[2023-12-05] MEDS ORDERED: DEXAMETHASONE SOD PHOSPHATE 10 MG/1 ML VIAL ONE (22:11)
[2023-12-05] MEDS: DEXAMETHASONE SOD PHOSPHATE 4 MG/1 ML VIAL IVPUSH ONE (22:14)
[2023-12-06] MEDS ORDERED: ACETAMINOPHEN 500 MG TABLET (FP) PO PRN (00:56)
[2023-12-06] MEDS: REMDESIVIR 200 MG in SODIUM CHLORIDE 250 ML IVPB ONE (02:39)
[2023-12-06 04:16] VITALS: BP 139/76; PULSE 81; RESP 16; TEMP 98.7
[2023-12-06] MEDS ORDERED: ENOXAPARIN NA (PORCINE) 40 MG/0.4 ML DISP.SYRIN SQ SCH (10:00)
[2023-12-06] MEDS ORDERED: DEXAMETHASONE 4 MG TABLET (FP) PO SCH (10:00)
[2023-12-07] MEDS ORDERED: REMDESIVIR 100 MG in SODIUM CHLORIDE 250 ML IVPB SCH (10:00)
== END 2023-12-06 04:30 | disposition left against medical advice (07) | DRG 177 ==
LOC: JER 14:31 → JERBED 22:39
PROVIDERS: ADMIT Internal Medicine; ATTEND Internal Medicine
PROC: XW033E5 Introduction of Remdesivir Anti-infective into Peripheral Vein, Percutaneous Approach, New Technology Group 5 (ICD-10-PCS; principal; 2023-12-06)
DX: U07.1 COVID-19 (principal); J96.01 Acute respiratory failure with hypoxia; F20.0 Paranoid schizophrenia; K59.00 Constipation, unspecified; M81.0 Age-related osteoporosis without current pathological fracture; R56.9 Unspecified convulsions; Z53.29 Procedure and treatment not carried out because of patient's decision for other reasons; W19.XXXA Unspecified fall, initial encounter; Y93.89 Activity, other specified; Y92.89 Other specified places as the place of occurrence of the external cause; Y99.8 Other external cause status
CPT/HCPCS: 0241U-QW; 36415; 70450-TC; 70486-TC; 71045-TC-FY; 72125-TC; 80053; 81003; 82803; 83735; 83880; 84100; 84484; 85025; 85610; 85730; 86850; 86900; 86901; 87086; 93005; 93010; 99285-25; J0131